=== PATIENT | male | born 1940 | race African-American/Black ===

== ENCOUNTER 2022-03-04 09:31 | Emergency (ER) | payer MEDICARE, BC ==
[~2022-03-04] VITALS: Ht 170.2 cm; Wt 77.2 kg
[2022-03-04 09:46] VITALS: BP 129/61
--- NOTE | 2022-03-04 10:14 | RAD ---
Left wrist 2 views. HISTORY: Left wrist pain 2 views were taken of the left wrist. There is not evidence of an acute fracture. There is mild joint space narrowing at the radiocarpal joint from mild arthritis. Lunate is rotated posterior relative t o the radius and capitate. Ligamentous injury is possible. There is not definitive increase space at the scapholunate joint. There is no other acute osseous abnormality. IMPRESSION: 1. Mild arthritis left wrist. 2. No acute fracture. 3. Rotation of the lunate relative to the radius and capitate, possible ligamentous injury. Electronically signed by: Aren Diaz MD (03/04/2022 10:11 AM) [id number]
--- NOTE | 2022-03-04 10:28 | PHYS DOC ---
Past Medical History Additional Past Medical Histor: COLON RECTAL CANCER Past Surgical History: Cancer Surgery Additional Past Surgical Histo: COLON RESECTION,LEFT KNEE General Adult EDM: Chief Complaint: UPPER EXTREMITY PAIN HPI: HPI: Patient is a 81 year old male presents to the ER with left wrist pain that started yesterday when he put on his watch. Patient states he currently does not have any pain. Patient was alarmed because he states that when he put his watch on he felt something pop. [place] pain. Patient states that he was already at doctor's office today and wanted to be checked out stop by the ER for imaging. Denies any numbness or tingling. Denies any decreased range of motion. Review of Systems: Review of Systems: Constitutional: Denies fever or chills. [] Eyes: Denies change in visual acuity. [] HENT: Denies nasal congestion or sore throat. [] Respiratory: Denies cough or shortness of breath. [] Cardiovascular: Denies chest pain or edema. [] GI: Denies abdominal pain, nausea, vomiting, bloody stools or diarrhea. [] : Denies dysuria. [] Musculoskeletal: Left wrist denies back pain or joint pain. [] Integument: Denies rash. [] Neurologic: Denies headache, focal weakness or sensory changes. [] Endocrine: Denies polyuria or polydipsia. [] Lymphatic: Denies swollen glands. [] Psychiatric: Denies depression or anxiety. [] Heart Score: C/O Chest Pain: No Risk Factors: Risk Factors: DM, Current or recent (<one month) smoker, HTN, HLP, family history of CAD, obesity. Risk Scores: Score 0 - 3: 2.5% MACE over next 6 weeks - Discharge Home Score 4 - 6: 20.3% MACE over next 6 weeks - Admit for Clinical Observation Score 7 - 10: 72.7% MACE over next 6 weeks - Early Invasive Strategies Allergies: Allergies: Allergies Coded Allergies Type Severity Reaction Last Updated Verified No Known Drug Allergies 03/04/22 No Physical Exam: PE: Constitutional: Well developed, well nourished, no acute distress, non-toxic appearance. [] HENT: Normocephalic, atraumatic, bilateral external ears normal, oropharynx moist, no oral exudates, nose normal. [] Eyes: PERRLA, EOMI, conjunctiva normal, no discharge. [] Neck: Normal range of motion, no tenderness, supple, no stridor. [] Cardiovascular:Heart rate regular rhythm, no murmur [] Lungs & Thorax: Bilateral breath sounds clear to auscultation [] Abdomen: Bowel sounds normal, soft, no tenderness, no masses, no pulsatile masses. [] Skin: Warm, dry, no erythema, no rash. [] Back: No tenderness, no CVA tenderness. [] Extremities: No obvious deformity to left wrist. No decreased range of motion. No tenderness, no cyanosis, no clubbing, ROM intact, no edema. [] Neurologic: Alert and oriented X 3, normal motor function, normal sensory function, no focal deficits noted. [] Psychologic: Affect normal, judgement normal, mood normal. [] Current Patient Data: Vital Signs: Vital Signs Date Time Temp Pulse Resp B/P (MAP) Pulse Ox O2 Delivery O2 Flow Rate FiO2 03/04/22 09:46 98.0 52 18 129/61 (83) 96 Room Air 98.0 EKG: EKG: [] Radiology/Procedures: Radiology/Procedures: []Left wrist 2 views. HISTORY: Left wrist pain 2 views were taken of the left wrist. There is not evidence of an acute fra cture. There is mild joint space narrowing at the radiocarpal joint from mild arthritis. Lunate is rotated posterior relative to the radius and capitate. Ligamentous injury is possible. There is not definitive increase space at the scapholunate joint. There is no other acute osseous abnormality. IMPRESSION: 1. Mild arthritis left wrist. 2. No acute fracture. 3. Rotation of the lunate relative to the radius and capitate, possible ligamentous injury. Course & Med Decision Making: Course & Med Decision Making Pertinent Labs and Imaging studies reviewed. (See chart for details) [] Discussed the case with the radiologist. Patient's x-rays poor imaging due to patient's underlying arthritis. Patient will be placed in a Velcro splint and will follow up with orthopedics in the outpatient setting and obtain an MRI. Dragon Disclaimer: Dragon Disclaimer: This electronic medical record was generated, in whole or in part, using a voice recognition dictation system. ALINA ROMERO DO Mar 04, 2022 10:28
== END 2022-03-04 10:50 | disposition home or self-care (01) ==
LOC: ER 09:31
DX: M25.532 Pain in left wrist (principal); M19.032 Primary osteoarthritis, left wrist
CPT/HCPCS: 29125; 73100; 99283